=== PATIENT | female | born 2000 | race Caucasian/White ===

== ENCOUNTER → 2021-10-07 22:22 | Observation (INO) | END | disposition home or self-care (01) | LOC: 1NENULAB | PROVIDERS: ADMIT Registered Nurse; ATTEND Registered Nurse ==

== ENCOUNTER 2021-10-22 07:51 | Observation (INO) ==
[2021-10-22] MEDS: 0.9 % Sodium Chloride 1,000 ML IVC SCH ×2 (08:29→12:16)
[2021-10-22] MEDS ORDERED: Morphine Sulfate 2 MG/ML SYRINGE IVP ONE (08:29)
[2021-10-22] MEDS ORDERED: diazePAM 5 MG TABLET PO ONE (08:42)
[2021-10-22 08:46] LABS: Basophils # 0.1 K/mcL (0.0-0.2); Basophils % 0.4 %; Eosinophils # 0.2 K/mcL (0.0-0.6); Hematocrit 40.6 % (35.3-44.9); Hemoglobin 12.4 g/dL (11.5-15.4); Immature Granulocytes % 0.6 % (0-4); Lymphocytes # 1.7 K/mcL (0.6-4.6); Lymphocytes % 10.9 %; Mean Corpuscular HGB Conc 30.5 g/dL (31.6-35.5); Mean Corpuscular Hemoglobin 23.2 pg (28.0-33.3); Mean Corpuscular Volume 75.9 fL (83.0-100.0); Mean Platelet Volume 8.4 fL (9.4-12.4); Monocytes # 0.6 K/mcL (0.0-1.3); Neutrophils # 13.1 K/mcL (1.6-8.9); Platelet Count 409 K/mcL (140-400); Red Blood Count 5.35 M/mcL (3.82-4.97); Red Cell Distribution Width 17.1 % (11.5-14.5); Segmented Neutrophils % 83.1 %; White Blood Count 15.7 K/mcL (4.3-11.1)
[2021-10-22 08:54] LABS: Bacteria,Urine Few per hpf (None-Few); Bilirubin,Urine Negative (Negative); Blood,Urine Moderate (Negative); Clarity,Urine Clear (Clear); Color,Urine Light-Yellow (Yellow); Glucose,Urine (UA) Normal (Normal); Ketones,Urine Negative (Negative); Leukocyte Esterase,Urine Large (Negative); Mucus,Urine Few per lpf (None-Few); Nitrite,Urine Negative (Negative); Protein,Urine Negative (Neg-Trace); Specific Gravity,Urine 1.009 (1.010-1.025); Squamous Epithelial Cell,Urine Few per hpf (None-Few); Urobilinogen,Urine Normal (Normal); WBC,Urine 50-100 per hpf (0-3)
[2021-10-22 09:03] LABS: Alanine Aminotransferase 13 Units/L (7-52); Albumin 3.9 g/dL (3.5-5.7); Albumin/Globulin Ratio 1.2 (1.1-2.2); Alkaline Phosphatase 101 Units/L (34-104); Aspartate Amino Transferase 11 Units/L (13-39); BUN/Creatinine Ratio 15 (6-26); Bilirubin,Total 0.6 mg/dL (0.3-1.0); Blood Urea Nitrogen 8 mg/dL (6-20); Calcium 8.9 mg/dL (8.6-10.3); Carbon Dioxide 22 mEq/L (23-29); Chloride 105 mEq/L (98-107); Globulin 3.3 g/dL (2.4-3.5); Glucose 112 mg/dL (70-105); Lipase 7 Units/L (11-82); Magnesium 1.8 mg/dL (1.6-2.6); Osmolality,Calculated 283 (280-300); Potassium 3.8 mEq/L (3.5-5.1); Sodium 137 mEq/L (136-145); Total Protein 7.2 g/dL (6.4-8.9); eGFR For African Americans > 60 (> 60); eGFR For Non-African Americans > 60 (> 60)
[2021-10-22] MEDS ORDERED: Ketorolac 30 MG/ML VIAL IM ONE (12:01)
[2021-10-22] MEDS ORDERED: Clindamycin 900 MG/50 ML 900 MG/50 ML IV.SOLN IVPB ONE (12:08)
[2021-10-22] MEDS ORDERED: Ringers Solution, Lactated 1,000 ML IVC SCH (14:45)
[2021-10-22] MEDS ORDERED: Ondansetron 4 MG/2 ML VIAL ONE (14:56)
[2021-10-22] MEDS ORDERED: Lidocaine -MPF 2% 5 ML VIAL ONE (14:56)
[2021-10-22] MEDS ORDERED: *HR* Rocuronium Bromide 50 MG/5 ML VIAL ONE (14:56)
[2021-10-22] MEDS ORDERED: Lidocaine HCL 4 ML Topical Solution (Laryng-O-Jet Kit Sterile Pak) TP ONE (14:56)
[2021-10-22] MEDS ORDERED: *HR* Succinylcholine 200 MG/10 ML VIAL IVP ONE (14:56)
[2021-10-22] MEDS ORDERED: *HR* FentaNYL (PF) 100 MCG/2 ML VIAL ONE (14:57)
[2021-10-22] MEDS ORDERED: *HR* Propofol 200 MG/20 ML VIAL IVP ONE (14:57)
[2021-10-22] MEDS ORDERED: *HR* Midazolam HCl 2 MG/2 ML VIAL ONE (14:57)
[2021-10-22] MEDS ORDERED: Metoclopramide 10 MG/2 ML VIAL ONE (15:43)
[2021-10-22] MEDS ORDERED: Famotidine 20 MG/2 ML VIAL ONE (15:44)
[2021-10-22] MEDS ORDERED: *HR* Promethazine 25 MG/ML VIAL IVPB PRN (15:49)
[2021-10-22] MEDS ORDERED: *HR* OxyCODONE Immed Rel 5 MG TABLET PO PRN (15:49)
[2021-10-22] MEDS ORDERED: *HR* HYDROmorphone PF 0.5 MG/0.5 ML SYRINGE IVP PRN (15:49)
[2021-10-22] MEDS ORDERED: *HR* Labetalol 20 MG/4 ML SYRINGE IVP PRN (15:49)
[2021-10-22] MEDS ORDERED: *HR* HYDROmorphone 2 MG TABLET PO PRN (15:49)
[2021-10-22] MEDS ORDERED: Promethazine 6.25 MG in Water for inj. (sterile) 20 ML IVPB PRN (15:52)
[2021-10-22] MEDS ORDERED: CefOXitin 2,000 MG VIAL ONE (16:11)
[2021-10-22] MEDS ORDERED: Acetaminophen IV 1,000 MG/100 ML BAG IVPB ONE (16:17)
[2021-10-22] MEDS ORDERED: *HR* HYDROMORPHONE 2 MG/ML VIAL ONE (16:33)
[2021-10-22] MEDS ORDERED: CefOXitin 1,000 MG VIAL ONE (16:41)
[2021-10-22] MEDS ORDERED: Sugammadex Sodium 200 MG/2 ML VIAL IV ONE (16:46)
[2021-10-22] MEDS ORDERED: Ketorolac 30 MG/ML VIAL ONE (16:46)
[2021-10-22] MEDS ORDERED: Ondansetron 4 MG/2 ML VIAL IVP PRN (17:45)
[2021-10-22] MEDS ORDERED: Lanolin 7 G OINT...G. TP PRN (17:45)
[2021-10-22] MEDS ORDERED: Benzocaine/Menthol 56 GM AEROSOL SPRAY TP PRN (17:45)
[2021-10-22] MEDS ORDERED: Naloxone 0.4 MG/ML INJ IVP PRN (17:45)
[2021-10-22] MEDS ORDERED: Ketorolac 30 MG/ML VIAL IVP PRN (17:45)
[2021-10-22] MEDS: Piperacillin/Tazobactam 3.375 GM in 0.9 % Sodium Chloride Mini Bag 100 ML IVPB SCH (23:39)
[2021-10-22] MEDS: *HR* HYDROcodone/Acet 5/325 mg TABLET PO PRN (23:40)
[2021-10-23 06:40] LABS: Basophils # 0.1 K/mcL (0.0-0.2); Basophils % 0.2 %; Hematocrit 31.9 % (35.3-44.9); Immature Granulocytes % 0.5 % (0-4); Lymphocytes # 1.7 K/mcL (0.6-4.6); Lymphocytes % 8.5 %; Mean Corpuscular HGB Conc 31.3 g/dL (31.6-35.5); Mean Corpuscular Volume 76.5 fL (83.0-100.0); Mean Platelet Volume 8.9 fL (9.4-12.4); Monocytes # 0.7 K/mcL (0.0-1.3); Monocytes % 3.5 %; Platelet Count 354 K/mcL (140-400); Red Blood Count 4.17 M/mcL (3.82-4.97); Red Cell Distribution Width 17.2 % (11.5-14.5); Segmented Neutrophils % 87.3 %; White Blood Count 20.6 K/mcL (4.3-11.1)
[2021-10-23] MEDS: Prenatal Vit/FA 1 EACH TABLET PO SCH (08:32)
[2021-10-23] MEDS: Piperacillin/Tazobactam 3.375 GM in 0.9 % Sodium Chloride Mini Bag 100 ML IVPB SCH ×2 (08:34→15:59)
[2021-10-23] MEDS: *HR* HYDROcodone/Acet 5/325 mg TABLET PO PRN ×2 (09:14→18:30)
[2021-10-23] MEDS ORDERED: *HR* OxyCODONE/APAP 5/325 TABLET PO ONE (12:14)
[2021-10-23] MEDS ORDERED: Milk and Molasses Enema 200 ML RC ONE (22:15)
[2021-10-24] MEDS: Piperacillin/Tazobactam 3.375 GM in 0.9 % Sodium Chloride Mini Bag 100 ML IVPB SCH ×2 (00:57→10:29)
[2021-10-24] MEDS: Acetaminophen 325 MG TABLET PO PRN ×2 (00:58→08:55)
[2021-10-24] MEDS: Ibuprofen 600 MG TABLET PO PRN ×2 (00:58→08:56)
[2021-10-24 05:24] LABS: Basophils % 0.3 %; Eosinophils # 0.1 K/mcL (0.0-0.6); Eosinophils % 0.7 %; Hematocrit 27.5 % (35.3-44.9); Hemoglobin 8.5 g/dL (11.5-15.4); Immature Granulocytes % 0.6 % (0-4); Lymphocytes # 2.1 K/mcL (0.6-4.6); Lymphocytes % 17.8 %; Mean Corpuscular HGB Conc 30.9 g/dL (31.6-35.5); Mean Corpuscular Volume 77.7 fL (83.0-100.0); Mean Platelet Volume 8.7 fL (9.4-12.4); Monocytes # 0.7 K/mcL (0.0-1.3); Monocytes % 6.1 %; Neutrophils # 8.7 K/mcL (1.6-8.9); Platelet Count 292 K/mcL (140-400); Red Blood Count 3.54 M/mcL (3.82-4.97); Red Cell Distribution Width 17.5 % (11.5-14.5); Segmented Neutrophils % 74.5 %; White Blood Count 11.7 K/mcL (4.3-11.1)
[2021-10-24 05:43] LABS: eGFR For African Americans > 60 (> 60); eGFR For Non-African Americans > 60 (> 60)
[2021-10-24 08:11] VITALS: BP 100/64; PULSE 74; TEMP 98.7; O2SAT 100
[2021-10-24] MEDS: Prenatal Vit/FA 1 EACH TABLET PO SCH (08:55)
== END 2021-10-24 11:00 | disposition home or self-care (01) ==
LOC: 1NENUOBS 07:51 → EMEROOARM 07:51 → 1NENUOBS 13:26
PROVIDERS: ADMIT Obstetrics & Gynecology; ATTEND Obstetrics & Gynecology